=== PATIENT | female | born 1970 | race Caucasian/White ===

== ENCOUNTER 2020-01-10 08:13 | Outpatient (CLI) | payer BC, SELFPAY ==
--- NOTE | 2020-01-10 08:29 | XR_ITS ---
WS: [id number] HIPS BILATERAL TECHNIQUE: 5 views bilateral hips Including pelvis CLINICAL INFORMATION: BILAT HIP PAIN; SEE ORDER FOR VIEWS COMPARISON: None. FINDINGS: Both hips are normal in appearance. No acute fractures. Visualized pubic rami and sacrum are normal i n appearance. 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 XR/XR hip BI m 5V wo/w pel* [id number] IMPRESSION: 1. Both hips are symmetric and normal in alignment with mild degenerative arth ritis. 2. Left femoral neck and acetabulum appear normal. No significant acetabular o r femoral head dysplasia.
== END 2020-01-10 08:14 | disposition home or self-care (01) ==
LOC: RADWPI 08:19
PROVIDERS: Family Provider Family Medicine; PCP Family Medicine; Visit Provider Emergency Medicine
DX: M16.0 Bilateral primary osteoarthritis of hip (principal)
CPT/HCPCS: 73523

== ENCOUNTER 2020-02-16 10:21 | Outpatient (RCR) | payer BC, SELFPAY | END 2020-03-05 23:59 | disposition home or self-care (01) | LOC: SPT 10:21 | PROVIDERS: Visit Provider Emergency Medicine | DX: M25.851 Other specified joint disorders, right hip (principal) | CPT/HCPCS: 97110; 97112; 97161 ==

== ENCOUNTER 2020-03-06 06:00 | Outpatient (RCR) | payer BC, SELFPAY | END 2020-04-04 23:59 | disposition home or self-care (01) | LOC: SPT 06:00 | PROVIDERS: Visit Provider Emergency Medicine | DX: M25.851 Other specified joint disorders, right hip (principal) | CPT/HCPCS: 97110; 97530 ==

== ENCOUNTER → 2020-10-29 15:55 | Outpatient (BNVA) | payer BC, SELFPAY | PROVIDERS: Visit Provider Nurse Practitioner | DX: R30.0 Dysuria (principal); N39.0 Urinary tract infection, site not specified | CPT/HCPCS: 81000; 87086 ==

== ENCOUNTER → 2021-12-20 10:50 | Outpatient (BNVA) | payer BC, SELFPAY | PROVIDERS: Visit Provider Family Medicine Adult Medicine | DX: N39.0 Urinary tract infection, site not specified (principal) | CPT/HCPCS: 81000 ==

== ENCOUNTER 2024-10-27 14:32 | Outpatient (RCR) | payer BC, SELFPAY | END 2024-11-02 23:59 | disposition home or self-care (01) | LOC: SPT 14:32 | PROVIDERS: Visit Provider Orthopaedic Surgery | DX: Z47.1 Aftercare following joint replacement surgery (principal); Z96.641 Presence of right artificial hip joint | CPT/HCPCS: 97110; 97161 ==

== ENCOUNTER 2024-11-03 05:00 | Outpatient (RCR) | payer BC, SELFPAY | END 2024-12-03 23:59 | disposition home or self-care (01) | LOC: SPT 05:00 | PROVIDERS: Visit Provider Orthopaedic Surgery | DX: Z47.1 Aftercare following joint replacement surgery (principal); Z96.641 Presence of right artificial hip joint | CPT/HCPCS: 97110 ==

== ENCOUNTER 2024-12-04 05:00 | Outpatient (RCR) | payer BC, SELFPAY | END 2025-01-02 23:59 | disposition home or self-care (01) | LOC: SPT 05:00 | PROVIDERS: Visit Provider Orthopaedic Surgery | DX: Z47.1 Aftercare following joint replacement surgery (principal); Z96.641 Presence of right artificial hip joint | CPT/HCPCS: 97110 ==

== ENCOUNTER 2025-01-03 05:00 | Outpatient (RCR) | payer BC, SELFPAY | END 2025-02-02 23:59 | disposition home or self-care (01) | LOC: SPT 05:00 | PROVIDERS: Visit Provider Orthopaedic Surgery | DX: Z98.890 Other specified postprocedural states (principal) | CPT/HCPCS: 97110 ==

== ENCOUNTER 2025-02-03 05:00 | Outpatient (RCR) | payer BC, SELFPAY | END 2025-03-05 23:59 | disposition home or self-care (01) | LOC: SPT 05:00 | PROVIDERS: Visit Provider Orthopaedic Surgery | DX: Z47.89 Encounter for other orthopedic aftercare (principal) | CPT/HCPCS: 97110 ==

== ENCOUNTER 2025-03-06 05:00 | Outpatient (RCR) | payer BC, SELFPAY | END 2025-04-04 23:59 | disposition home or self-care (01) | LOC: SPT 05:00 | PROVIDERS: Visit Provider Orthopaedic Surgery | DX: Z47.1 Aftercare following joint replacement surgery (principal); Z96.641 Presence of right artificial hip joint | CPT/HCPCS: 97110 ==

== ENCOUNTER 2025-04-05 05:00 | Outpatient (RCR) | payer BC, SELFPAY | END 2025-05-05 23:59 | disposition home or self-care (01) | LOC: SPT 05:00 | PROVIDERS: Visit Provider Orthopaedic Surgery | DX: Z47.1 Aftercare following joint replacement surgery (principal); Z96.641 Presence of right artificial hip joint | CPT/HCPCS: 97110 ==

== ENCOUNTER 2025-05-06 05:00 | Outpatient (RCR) | payer BC, SELFPAY | END 2025-05-17 09:45 | disposition home or self-care (01) | LOC: SPT 05:00 | PROVIDERS: Visit Provider Orthopaedic Surgery | DX: Z47.1 Aftercare following joint replacement surgery (principal); Z96.641 Presence of right artificial hip joint | CPT/HCPCS: 97110 ==